=== PATIENT | female | born 1965 | race Caucasian/White ===

== ENCOUNTER 2023-07-04 07:57 | Day surgery (SDC) | payer OTHER ==
[~2023-07-04] VITALS: Ht 170.2 cm; Wt 90.7 kg
[2023-07-04] MEDS ORDERED: LIDOCAINE 2% 100 MG/5 ML UJET TP ONE ×2 (09:13→13:20)
[2023-07-04] MEDS ORDERED: fentaNYL citrate 0.05 MG/ML VIAL ONE (09:13)
[2023-07-04] MEDS ORDERED: fentaNYL citrate 0.05 MG/ML VIAL IVP ONE (13:20)
== END 2023-07-04 11:10 | disposition home or self-care (01) ==
LOC: MDS 07:57 → MMU 07:58 → MDS 11:10
PROVIDERS: ATTEND Internal Medicine Gastroenterology
DX: R19.7 Diarrhea, unspecified (principal); K62.1 Rectal polyp; K75.81 Nonalcoholic steatohepatitis (NASH); Z86.010 Personal history of colon polyps; I10 Essential (primary) hypertension; E03.9 Hypothyroidism, unspecified; Z85.3 Personal history of malignant neoplasm of breast; Z85.850 Personal history of malignant neoplasm of thyroid; Z90.49 Acquired absence of other specified parts of digestive tract; Z79.899 Other long term (current) drug therapy
CPT/HCPCS: 45385; J3010